=== PATIENT | male | born 1985 | race Hispanic/Latino ===

== ENCOUNTER → 2023-08-02 06:58 | Outpatient (REF) | payer OTHER, SELFPAY ==
[2023-08-02 08:26] LABS: ALT (SGPT) 46 U/L (0-50); AST (SGOT) 27 U/L (17-59); Albumin 4.1 g/dl (3.5-5.0); Alkaline Phosphatase 109 U/L (38-126); Blood Urea Nitrogen 12 mg/dl (9-20); Calcium 9.3 mg/dl (8.4-10.2); Carbon Dioxide 27 mmol/L (22-30); Chloride 102 mmol/L (98-107); Glucose 284 mg/dl (70-99); Potassium 4.3 mmol/L (3.5-5.1); Sodium 137 mmol/L (135-145); Total Bilirubin 0.5 mg/dl (0.2-1.3); eGFR > 60.00
[2023-08-02 11:22] LABS: Glycohemoglobin (HgbA1c) 13.7 % (4.0-5.6)
== END ==
LOC: CLINIC 06:58
PROVIDERS: ATTENDING PHYSICIAN Nurse Practitioner Acute Care
DX: E11.9 Type 2 diabetes mellitus without complications (principal)
CPT/HCPCS: 36415; 80053; 83036

== ENCOUNTER → 2023-10-09 07:05 | Outpatient (REF) | payer OTHER, SELFPAY ==
[2023-10-09 08:36] LABS: Glucose 122 mg/dl (70-99)
[2023-10-09 09:20] LABS: Glycohemoglobin (HgbA1c) 7.7 % (4.0-5.6)
== END ==
LOC: CLINIC 07:05
PROVIDERS: ATTENDING PHYSICIAN Nurse Practitioner Adult Health
DX: E11.9 Type 2 diabetes mellitus without complications (principal)
CPT/HCPCS: 82947; 83036

== ENCOUNTER → 2023-11-29 06:28 | Outpatient (REF) | payer OTHER, SELFPAY ==
[2023-11-29 08:14] LABS: ALT (SGPT) 59 U/L (0-50); AST (SGOT) 27 U/L (17-59); Albumin 4.4 g/dl (3.5-5.0); Alkaline Phosphatase 84 U/L (38-126); Blood Urea Nitrogen 13 mg/dl (9-20); Calcium 9.3 mg/dl (8.4-10.2); Carbon Dioxide 26 mmol/L (22-30); Chloride 101 mmol/L (98-107); Glucose 119 mg/dl (70-99); Potassium 4.2 mmol/L (3.5-5.1); Sodium 140 mmol/L (135-145); Total Bilirubin 0.7 mg/dl (0.2-1.3); Total Protein 7.1 g/dl (6.3-8.2); eGFR > 60.00
[2023-11-29 11:28] LABS: Glycohemoglobin (HgbA1c) 6.9 % (4.0-5.6)
== END ==
LOC: REG 06:28
PROVIDERS: ATTENDING PHYSICIAN Nurse Practitioner Adult Health
DX: E11.9 Type 2 diabetes mellitus without complications (principal)
CPT/HCPCS: 36415; 80053; 83036

== ENCOUNTER → 2024-04-14 08:07 | Outpatient (REF) | payer OTHER, SELFPAY ==
[2024-04-14 10:00] LABS: Microalbumin, Random Urine 2.6 mg/dl (0.6-1.7); Microalbumin/creatinine Ratio 22.9 mg/g
[2024-04-14 10:12] LABS: ALT (SGPT) 89 U/L (0-50); AST (SGOT) 39 U/L (17-59); Albumin 4.8 g/dl (3.5-5.0); Alkaline Phosphatase 88 U/L (38-126); Blood Urea Nitrogen 11 mg/dl (9-20); Calcium 8.6 mg/dl (8.4-10.2); Carbon Dioxide 28 mmol/L (22-30); Chloride 100 mmol/L (98-107); Glucose 153 mg/dl (70-99); HDL Cholesterol 37 mg/dl; LDL Cholesterol, Calculated 98 mg/dl; Potassium 4.5 mmol/L (3.5-5.1); Sodium 140 mmol/L (135-145); Total Bilirubin 0.9 mg/dl (0.2-1.3); Total Cholesterol 168 mg/dl (50-199); Total Protein 7.8 g/dl (6.3-8.2); Triglyceride 165 mg/dl (10-149); Very Low Density Lipoprotein 33 mg/dl (0-30); eGFR > 60.00
[2024-04-14 10:33] LABS: Glycohemoglobin (HgbA1c) 7.1 % (4.0-5.6)
== END ==
LOC: REG 08:07
PROVIDERS: ATTENDING PHYSICIAN Nurse Practitioner Adult Health
DX: E11.9 Type 2 diabetes mellitus without complications (principal); K76.0 Fatty (change of) liver, not elsewhere classified; E78.5 Hyperlipidemia, unspecified
CPT/HCPCS: 36415; 80053; 80061; 82043; 82570; 83036

== ENCOUNTER → 2024-09-02 07:17 | Outpatient (REF) | payer OTHER, SELFPAY ==
[2024-09-02 09:21] LABS: ALT (SGPT) 81 U/L (0-50); AST (SGOT) 29 U/L (17-59); Albumin 4.7 g/dl (3.5-5.0); Alkaline Phosphatase 76 U/L (38-126); Blood Urea Nitrogen 16 mg/dl (9-20); Calcium 9.4 mg/dl (8.4-10.2); Carbon Dioxide 26 mmol/L (22-30); Chloride 105 mmol/L (98-107); Glucose 130 mg/dl (70-99); Potassium 4.8 mmol/L (3.5-5.1); Sodium 140 mmol/L (135-145); Total Bilirubin 0.6 mg/dl (0.2-1.3); Total Protein 7.7 g/dl (6.3-8.2); eGFR > 60.00
[2024-09-02 09:38] LABS: Microalbumin, Random Urine 0.7 mg/dl (0.6-1.7)
[2024-09-02 12:37] LABS: Glycohemoglobin (HgbA1c) 7.3 % (4.0-5.6)
== END ==
LOC: CLINIC 07:17
PROVIDERS: ATTENDING PHYSICIAN Nurse Practitioner Adult Health
DX: E11.9 Type 2 diabetes mellitus without complications (principal); K76.0 Fatty (change of) liver, not elsewhere classified; R80.9 Proteinuria, unspecified
CPT/HCPCS: 80053; 82043; 82570; 83036

== ENCOUNTER → 2024-12-02 08:00 | Outpatient (REF) | payer OTHER, SELFPAY ==
[2024-12-02 09:13] LABS: Albumin 4.5 g/dl (3.5-5.0); Blood Urea Nitrogen 10 mg/dl (9-20); Carbon Dioxide 27 mmol/L (22-30); Glycohemoglobin (HgbA1c) 7.1 % (4.0-5.6); Total Protein 7.5 g/dl (6.3-8.2); eGFR > 60.00
[2024-12-02 09:24] LABS: ALT (SGPT) 136 U/L (0-50); AST (SGOT) 58 U/L (17-59); Alkaline Phosphatase 90 U/L (38-126); Calcium 9.4 mg/dl (8.4-10.2); Chloride 105 mmol/L (98-107); Glucose 161 mg/dl (70-99); Potassium 4.8 mmol/L (3.5-5.1); Sodium 139 mmol/L (135-145)
== END ==
LOC: CLINIC 08:00
PROVIDERS: ATTENDING PHYSICIAN Nurse Practitioner Adult Health
DX: E11.9 Type 2 diabetes mellitus without complications (principal)
CPT/HCPCS: 36415; 80053; 83036

== ENCOUNTER → 2025-02-22 08:24 | Outpatient (REF) | payer OTHER, SELFPAY ==
[2025-02-22 10:48] LABS: ALT (SGPT) 108 U/L (0-50); AST (SGOT) 44 U/L (17-59); Albumin 4.7 g/dl (3.5-5.0); Alkaline Phosphatase 91 U/L (38-126); Blood Urea Nitrogen 14 mg/dl (9-20); Calcium 9.1 mg/dl (8.4-10.2); Carbon Dioxide 24 mmol/L (22-30); Chloride 100 mmol/L (98-107); Glucose 134 mg/dl (70-99); HDL Cholesterol 41 mg/dl; LDL Cholesterol, Calculated 95 mg/dl; Potassium 4.5 mmol/L (3.5-5.1); Sodium 136 mmol/L (135-145); Total Protein 7.7 g/dl (6.3-8.2); Very Low Density Lipoprotein 29 mg/dl (0-30); eGFR > 60.00
[2025-02-22 11:15] LABS: Microalb - Urine Creatinine 112.500 mg/dl
[2025-02-22 11:20] LABS: Microalbumin, Random Urine 1.2 mg/dl (0.6-1.7)
[2025-02-22 12:13] LABS: Glycohemoglobin (HgbA1c) 7.5 % (4.0-5.9)
== END ==
LOC: CLINIC 08:24
PROVIDERS: ATTENDING PHYSICIAN Nurse Practitioner Adult Health
DX: E11.9 Type 2 diabetes mellitus without complications (principal); E78.5 Hyperlipidemia, unspecified; R80.9 Proteinuria, unspecified
CPT/HCPCS: 36415; 80053; 80061; 82043; 82570; 83036